=== PATIENT | female | born 1985 | race Caucasian/White ===

== ENCOUNTER 2016-12-14 00:52 | Emergency (ER) | payer MEDICAID ==
[~2016-12-14] VITALS: Ht 160 cm; Wt 68.0 kg
[2016-12-14] MEDS ORDERED: METOCLOPRAMIDE HCL 10MG/2ML VIAL IV STA (02:52)
[2016-12-14] MEDS ORDERED: MORPHINE SULFATE 4 MG/ML CPJ (NOT FOR IM USE) IV STA (02:52)
[2016-12-14] MEDS ORDERED: SODIUM CHLORIDE 0.9% 1,000 ML IV ONE (02:52)
[2016-12-14 03:07] LABS: BASOPHILS % 0.7 % (0.0-2.0); EOSINOPHILS % 1.7 % (0.0-5.0); HEMATOCRIT. 37.8 % (36.0-48.0); HEMOGLOBIN. 13.1 g/dL (12.0-16.0); LYMPHOCYTES % 40.5 % (20.0-50.0); MEAN CORPUSCULAR HEMOGLOBIN 29.1 pg (28.0-32.0); MEAN CORPUSCULAR VOLUME 83.9 fL (81.0-99.0); MEAN PLATELET VOLUME 9.2 fl (7.4-10.4); MONOCYTES % 6.9 % (2.0-8.0); NEUTROPHILS % 50.2 % (40.0-76.0); PLATELET 213 x1000/uL (130-400); RED CELL DISTRIBUTION WIDTH 13.6 % (11.6-14.6)
[2016-12-14 03:14] LABS: CHLORIDE 111 mEq/L (98-107)
[2016-12-14 03:23] LABS: CARBON DIOXIDE 23 mEq/L (21-32)
[2016-12-14 05:50] VITALS: BP 101/65
== END 2016-12-14 05:53 | disposition home or self-care (01) ==
LOC: ER 00:52
DX: K80.20 Calculus of gallbladder without cholecystitis without obstruction (principal)
CPT/HCPCS: 36415; 80053; 83690; 85025; 96361; 96374; 96375; 99284; J2270; J2765; J7030

== ENCOUNTER 2018-03-15 01:52 | Emergency (ER) | payer SELFPAY ==
[~2018-03-15] VITALS: Ht 134.6 cm; Wt 73.0 kg
[2018-03-15] MEDS ORDERED: KETOROLAC 30MG/ML VIAL IV STA (03:03)
[2018-03-15] MEDS ORDERED: SODIUM CHLORIDE 0.9% 1,000 ML IV ONE (03:03)
[2018-03-15] MEDS ORDERED: ONDANSETRON HCL 4MG/2ML INJ IV STA (03:03)
[2018-03-15 03:20] LABS: CLARITY URINE CLEAR (CLEAR); COLOR URINE YELLOW (YELLOW); KETONES URINE NEGATIVE (NEGATIVE); LEUKOCYTE ESTERASE URINE NEGATIVE (NEGATIVE); NITRITE URINE NEGATIVE (NEGATIVE); OCCULT BLOOD URINE NEGATIVE (NEGATIVE); PH URINE 5.5 (4.5-8.0); PROTEIN URINE NEGATIVE (NEGATIVE); SPECIFIC GRAVITY URINE 1.018 (1.005-1.030); UROBILINOGEN URINE 0.2 E.U./dL (0.2-1.0)
[2018-03-15 03:59] LABS: BASOPHILS % 0.6 % (0.0-2.0); EOSINOPHILS % 1.7 % (0.0-5.0); HEMATOCRIT. 40.2 % (36.0-48.0); HEMOGLOBIN. 13.9 g/dL (12.0-16.0); LYMPHOCYTES % 30.4 % (20.0-50.0); MEAN CORPUSCULAR HEMOGLOBIN 29.7 pg (28.0-32.0); MEAN CORPUSCULAR VOLUME 85.7 fL (81.0-99.0); MEAN PLATELET VOLUME 9.4 fl (7.4-10.4); MONOCYTES % 7.4 % (2.0-8.0); NEUTROPHILS % 59.9 % (40.0-76.0); PLATELET 206 x1000/uL (130-400); RED BLOOD CELL COUNT 4.68 mill/uL (4.2-5.4); RED CELL DISTRIBUTION WIDTH 13.6 % (11.6-14.6)
[2018-03-15 04:05] LABS: CHLORIDE 107 mEq/L (98-107)
[2018-03-15 04:44] VITALS: BP 90/55
== END 2018-03-15 05:17 | disposition home or self-care (01) ==
LOC: ER 01:52
DX: A08.4 Viral intestinal infection, unspecified (principal); R10.30 Lower abdominal pain, unspecified; R19.7 Diarrhea, unspecified; R11.2 Nausea with vomiting, unspecified; Z90.49 Acquired absence of other specified parts of digestive tract; Z98.890 Other specified postprocedural states
CPT/HCPCS: 36415; 80053; 81003; 81025; 85025; 96361; 96374; 96375; 99284; J1885; J2405; J7030; Z7610

== ENCOUNTER 2018-07-04 22:19 | Emergency (ER) | payer MEDICAID ==
[~2018-07-04] VITALS: Ht 160 cm; Wt 79.0 kg
[2018-07-05] MEDS ORDERED: ACETAMINOPHEN 325MG TABLET PO ONE (00:15)
[2018-07-05 00:42] LABS: BASOPHILS % 0.7 % (0.0-2.0); EOSINOPHILS % 2.4 % (0.0-5.0); HEMATOCRIT. 39.9 % (36.0-48.0); HEMOGLOBIN. 13.6 g/dL (12.0-16.0); LYMPHOCYTES % 35.4 % (20.0-50.0); MEAN CORPUSCULAR HEMOGLOBIN 29.6 pg (28.0-32.0); MEAN CORPUSCULAR VOLUME 86.8 fL (81.0-99.0); MEAN PLATELET VOLUME 9.7 fl (7.4-10.4); NEUTROPHILS % 52.5 % (40.0-76.0); PLATELET 198 x1000/uL (130-400); RED BLOOD CELL COUNT 4.59 mill/uL (4.2-5.4); RED CELL DISTRIBUTION WIDTH 13.8 % (11.6-14.6)
[2018-07-05 00:46] LABS: CHLORIDE 107 mEq/L (98-107)
[2018-07-05 00:57] LABS: B-HCG QUANTITATIVE 597 mIU/mL (<3)
[2018-07-05 01:05] LABS: CLARITY URINE CLOUDY (CLEAR); COLOR URINE YELLOW (YELLOW); KETONES URINE NEGATIVE (NEGATIVE); LEUKOCYTE ESTERASE URINE 2+ (NEGATIVE); NITRITE URINE NEGATIVE (NEGATIVE); OCCULT BLOOD URINE 3+ (NEGATIVE); PH URINE 5.5 (4.5-8.0); PROTEIN URINE TRACE (NEGATIVE); SPECIFIC GRAVITY URINE 1.008 (1.005-1.030); UROBILINOGEN URINE 0.2 E.U./dL (0.2-1.0)
[2018-07-05 02:38] VITALS: BP 108/72
== END 2018-07-05 02:44 | disposition home or self-care (01) ==
LOC: ER 22:19
DX: O20.0 Threatened abortion (principal); O23.41 Unspecified infection of urinary tract in pregnancy, first trimester; Z3A.01 Less than 8 weeks gestation of pregnancy; Z90.49 Acquired absence of other specified parts of digestive tract; Z98.890 Other specified postprocedural states
CPT/HCPCS: 36415; 76801; 81025; 84702; 86850; 86900; 99284

== ENCOUNTER 2018-12-18 22:52 | Emergency (ER) | payer OTHER, MEDICAID ==
[~2018-12-18] VITALS: Ht 160 cm; Wt 83.0 kg
[2018-12-18 23:06] VITALS: BP 104/68
[2018-12-19 01:04] LABS: BASOPHILS % 0.7 % (0.0-2.0); EOSINOPHILS % 2.4 % (0.0-5.0); HEMATOCRIT. 39.4 % (36.0-48.0); HEMOGLOBIN. 13.6 g/dL (12.0-16.0); LYMPHOCYTES % 34.9 % (20.0-50.0); MEAN CORPUSCULAR HEMOGLOBIN 29.6 pg (28.0-32.0); MEAN CORPUSCULAR VOLUME 85.4 fL (81.0-99.0); MEAN PLATELET VOLUME 9.7 fl (7.4-10.4); MONOCYTES % 8.7 % (2.0-8.0); NEUTROPHILS % 53.3 % (40.0-76.0); PLATELET 195 x1000/uL (130-400); RED BLOOD CELL COUNT 4.61 mill/uL (4.2-5.4); RED CELL DISTRIBUTION WIDTH 14.7 % (11.6-14.6)
[2018-12-19 01:06] LABS: CHLORIDE 108 mEq/L (98-107)
[2018-12-19 01:29] LABS: B-HCG QUANTITATIVE 2351 mIU/mL (<3)
[2018-12-19 05:23] LABS: CLARITY URINE CLOUDY (CLEAR); COLOR URINE YELLOW (YELLOW)
[2018-12-19 05:24] LABS: PH URINE 5.5 (4.5-8.0); SPECIFIC GRAVITY URINE 1.023 (1.005-1.030)
[2018-12-19 05:25] LABS: KETONES URINE TRACE (NEGATIVE); PROTEIN URINE 1+ (NEGATIVE)
[2018-12-19 05:26] LABS: LEUKOCYTE ESTERASE URINE TRACE (NEGATIVE); NITRITE URINE NEGATIVE (NEGATIVE); OCCULT BLOOD URINE 3+ (NEGATIVE); UROBILINOGEN URINE 0.2 E.U./dL (0.2-1.0)
== END 2018-12-19 03:57 | disposition home or self-care (01) ==
LOC: ER 22:52
DX: O20.0 Threatened abortion (principal); Z3A.01 Less than 8 weeks gestation of pregnancy; Z98.890 Other specified postprocedural states
CPT/HCPCS: 36415; 76801; 81025; 84702; 86850; 86900; 99284

== ENCOUNTER 2018-12-26 17:22 | Day surgery (SDC) | payer OTHER, MEDICAID ==
[~2018-12-26] VITALS: Ht 157.5 cm; Wt 83.0 kg
[2018-12-26] MEDS ORDERED: SODIUM CHLORIDE 0.9% 1,000 ML IV ONE (18:03)
[2018-12-26] MEDS ORDERED: ACETAMINOPHEN 325MG TABLET PO PRN (18:15)
[2018-12-26 18:24] LABS: BASOPHILS % 0.8 % (0.0-2.0); HEMATOCRIT. 39.8 % (36.0-48.0); HEMOGLOBIN. 13.8 g/dL (12.0-16.0); LYMPHOCYTES % 26.7 % (20.0-50.0); MEAN CORPUSCULAR HEMOGLOBIN 29.9 pg (28.0-32.0); MEAN CORPUSCULAR VOLUME 85.9 fL (81.0-99.0); MEAN PLATELET VOLUME 9.2 fl (7.4-10.4); MONOCYTES % 9.8 % (2.0-8.0); NEUTROPHILS % 60.7 % (40.0-76.0); PLATELET 222 x1000/uL (130-400); RED BLOOD CELL COUNT 4.63 mill/uL (4.2-5.4); RED CELL DISTRIBUTION WIDTH 14.7 % (11.6-14.6)
[2018-12-26 18:31] LABS: CHLORIDE 108 mEq/L (98-107)
[2018-12-26 18:55] LABS: B-HCG QUANTITATIVE 3942 mIU/mL (<3)
[2018-12-26] MEDS ORDERED: ONDANSETRON HCL 4MG/2ML INJ IV ONE (19:00)
[2018-12-26 19:36] LABS: CLARITY URINE TURBID (CLEAR); COLOR URINE BLOODY (YELLOW); PROTEIN URINE TRACE (NEGATIVE); SPECIFIC GRAVITY URINE 1.015 (1.005-1.030)
[2018-12-26 19:37] LABS: LEUKOCYTE ESTERASE URINE 3+ (NEGATIVE); NITRITE URINE POSITIVE (NEGATIVE); OCCULT BLOOD URINE 3+ (NEGATIVE); UROBILINOGEN URINE 0.2 E.U./dL (0.2-1.0)
[2018-12-26 19:56] LABS: KETONES URINE 2+ (NEGATIVE)
[2018-12-26] MEDS ORDERED: CEFTRIAXONE 1 G PREMIX 50 ML IV ONE (20:00)
[2018-12-26] MEDS ORDERED: DEXT 5%/LR + PITOCIN 20UNITS/L 1,000 ML IV ONE (21:15)
[2018-12-26] MEDS ORDERED: LIDOCAINE HCL/PF 1% 10 MG/ML 5ML VIAL ONE (22:01)
[2018-12-26] MEDS ORDERED: FENTANYL CITRATE/PF 50MCG/ML 2ML VIAL ONE (22:01)
[2018-12-26] MEDS ORDERED: MIDAZOLAM HCL 2 MG/2 ML VIAL ONE (22:01)
[2018-12-26] MEDS ORDERED: PROPOFOL 200MG/20ML VIAL IV ONE (22:01)
[2018-12-26] MEDS ORDERED: DEXAMETHASONE 4MG/ML 1ML VIAL ONE (22:02)
[2018-12-26] MEDS ORDERED: SUCCINYLCHOLINE CHLORIDE 200MG/10ML IV ONE (22:02)
[2018-12-26] MEDS ORDERED: ROCURONIUM BROMIDE 10MG/ML VIAL 5ML IV ONE (22:02)
[2018-12-26] MEDS ORDERED: ONDANSETRON HCL 4MG/2ML INJ ONE (23:19)
[2018-12-26] MEDS ORDERED: ACETAMINOPHEN 650MG SUPP PR PRN (23:30)
[2018-12-26] MEDS ORDERED: RHO(D) IMMUNE GLOBULIN 300 MCG/SYR IM SCH (23:30)
[2018-12-26] MEDS ORDERED: IBUPROFEN 800MG TABLET PO SCH (23:30)
[2018-12-26] MEDS ORDERED: HYDROMORPHONE HCL/PF 2MG/ML CPJ IV PRN (23:45)
[2018-12-27 00:46] VITALS: BP 112/41
== END 2018-12-26 23:50 | disposition home or self-care (01) ==
LOC: ER 17:37 → OR 22:00 → ER 12-27 09:01
PROVIDERS: ATTEND Obstetrics & Gynecology
DX: O03.4 Incomplete spontaneous abortion without complication (principal); O46.91 Antepartum hemorrhage, unspecified, first trimester; Z3A.08 8 weeks gestation of pregnancy; Z98.890 Other specified postprocedural states
CPT/HCPCS: 36415; 59812; 76801; 76817; 80053; 81003; 84702; 85025; 86850; 86900; 86901; 87086; 88305; 96365; 96375; 99284; J0330; J0696; J1100; J2250; J2405; J2590; J2704; J3010; J3490; J7030

== ENCOUNTER 2022-05-22 16:20 | Emergency (ER) | payer MEDICAID ==
[~2022-05-22] VITALS: Ht 165.1 cm; Wt 83.9 kg
[2022-05-23] MEDS ORDERED: FLUORESCEIN SODIUM 1MG/STRIP LEFTEYE ONE
[2022-05-23] MEDS ORDERED: TETRACAINE 0.5% OPHTH DROPS 4ML LEFTEYE ONE
[2022-05-23] MEDS ORDERED: OFLO5DRO LEFTEYE (00:21)
[2022-05-23 01:11] VITALS: BP 120/78
== END 2022-05-23 01:12 | disposition home or self-care (01) ==
LOC: ER 16:20
DX: S05.02XA Injury of conjunctiva and corneal abrasion without foreign body, left eye, initial encounter (principal); X58.XXXA Exposure to other specified factors, initial encounter; Y93.84 Activity, sleeping; Y92.013 Bedroom of single-family (private) house as the place of occurrence of the external cause
CPT/HCPCS: 99283